=== PATIENT | male | born 1940 | race Caucasian/White ===

== ENCOUNTER 2024-02-14 05:59 | Day surgery (SDC) | payer OTHER, SELFPAY ==
[2024-01-23 13:02] VITALS: BMI 26.3
[2024-01-23 13:28] LABS: % Basophils 1.1 % (0-2); % Eosinophils 4.6 % (0-6); % Immature Granulocytes 0.6 % (0-0.5); % Lymphocytes 21.8 % (20.5-51.1); % Monocytes 10.4 % (1.7-9.3); % Neutrophils 61.5 % (42.2-75.2); Absolute Basophils 0.1 10^3/uL (0-0.2); Absolute Eosinophils 0.3 10^3/uL (0-0.7); Absolute Lymphocytes 1.4 10^3/uL (1.2-3.4); Absolute Monocytes 0.7 10^3/uL (0.1-0.6); Absolute Neutrophils 3.8 10^3/uL (1.4-6.5); Hematocrit 48.6 % (39.0-52.0); Hemoglobin 17.4 g/dL (13.0-18.0); Mean Corp Hgb Conc. 35.8 g/dL (33.0-37.0); Mean Corpuscular Hgb 32.6 pg (27.0-31.0); Mean Platelet Volume 10.3 fL (7.4-10.4); Nucleated Red Blood Cells % 0 % (-); Platelet Count 208 10^3/uL (130-400); Red Blood Cell Count 5.34 10^6/uL (4.70-6.10); Red Cell Dist. Width 13.3 % (11.5-14.5); White Blood Cell Count 6.3 10^3/uL (4.8-10.8)
[2024-01-23 13:39] LABS: INR 1.17
[2024-01-23 13:43] LABS: ALT (SGPT) 47 U/L (0-50); AST (SGOT) 51 U/L (17-59); Albumin 5.1 g/dl (3.5-5.0); Alkaline Phosphatase 86 U/L (38-126); Blood Urea Nitrogen 19 mg/dl (9-20); Carbon Dioxide 26 mmol/L (22-30); Chloride 103 mmol/L (98-107); Estimated Creatinine Clearance 53 ml/min; Glucose 98 mg/dl (70-99); Magnesium 2.2 mg/dl (1.6-2.3); Potassium 4.8 mmol/L (3.5-5.1); Sodium 139 mmol/L (135-145); Total Bilirubin 1.1 mg/dl (0.2-1.3); Total Protein 7.8 g/dl (6.3-8.2); eGFR > 60.00
[2024-02-14] VITALS (12 sets, daily range): BP systolic 110–152; BP diastolic 68–96; BMI 25.9
[2024-02-14 08:48] LABS: ACT-LR - POC 292 Seconds (116-155)
[2024-02-14 09:10] LABS: ACT-LR - POC 356 Seconds (116-155)
[2024-02-14 09:32] LABS: ACT-LR - POC 327 Seconds (116-155)
--- NOTE | 2024-02-14 09:53 | ITS.CL.ABL ---
Type Photography Supervisor - Ablation
Ablation
Procedure Report:
ELECTROPHYSIOLOGIC STUDY AND POSSIBLE ABLATION
DATE: February 14, 2024
Primary Care Provider: Dr. Juan Antonio Almaraz
Primary 4 H Youth Development Specialist: Dr. Saeid Braun
INDICATION:
Symptomatic Atrial Fibrillation.
Paroxysmal
HISTORY: See H and P.
Symptomatic AF, poorly controlled with attempted medical therapy.
He has been referred for electrophysiologic consultation From Dr. Saeid Braun regarding symptomatic atrial fibrillation.
He carries a history of heart failure with preserved ejection fraction, paroxysmal atrial fibrillation, paroxysmal atrial tachycardia/atypical flutter.�
HAS-BLED: 1
Age
CHADSVASc: 3
CHF (HFpEF)
Age
PRESENTING RHYTHM: AF
HISTORY: See H and P.
Symptomatic AF, poorly controlled with attempted medical therapy.
ANTICOAGULATION: apixaban
'TIME-OUT': called and confirmed.
SEDATION/ANESTHESIA: provided via the anesthesia department using general anesthesia.
PROCEDURE:
Ultrasound Guidance performed by ca was utilized for femoral venous Vascular Access b/l.
A decapolar CS catheter was placed within the CS for mapping and pacing.
The intracardiac ultrasound catheter was positioned in the RA for continuous intracardiac ultrasound imaging.
Cardioversion restored sinus rhythm.
Heparin bolus and infusion to target ACT at 300 -350 seconds was administered. Transseptal puncture was performed. This entailed advancing a sheath with dilator into the superior vena cava and withdrawing both (monitoring intracardiac ultrasound,
fluoroscopy and tip pressure) with the tip oriented toward the atrial septum. The fossa ovalis was engaged (indicated by sudden displacement of the sheath tip as well as tenting of the fossa seen on intracardiac ultrasound).
[employer] transseptal system was used. Left atrial catheter position was confirmed by echocardiographic imaging, pressure monitoring (LA mean pressure [ ] mm Hg) and fluoroscopy. The sheath was advanced over the dilator and positioned in the left
atrium.
The multipolar mapping catheter was initially positioned through the transseptal sheath for high density mapping.
Geometry and voltage mapping was performed using the [employer] multipolar grid catheter. [employer]avex was utilized for three-dimensional electroanatomical mapping.
A 3-D map was created using [employer]. A 3-D reconstructed CT image was compared to the 3-D [employer] map to assist in anatomic evaluation, mapping and ablation.
The Dr Lal [employer] Pulse Select PFA catheter and system was used for cardiac ablation. Catheter positioning was guided and confirmed using both I.C.E. and fluoroscopy.
PV isolation approach was used to electrically isolate each PV ostia.
Remapping with the [employer] multipolar grid catheter found that all PVPs were eliminated at each vein demonstrating entrance block. Also pacing from the multipolar mapping catheter around the the circumference of the ostia was performed at 10 ma and
2.0 msec output to assess for exit block. This demonstrated electrical isolation at each of the pulmonary vein ostia LSPV, LIPV, RSPV, RIPV.
Additional energy applications/additional ablation set was required to accomplish wide area circumferential ablation around each of the pulmonary vein sets. Furthermore, mapping of the posterior wall finds areas of significant fractionation and
therefore posterior wall isolation as an additional ablation lesion set was also performed.
High density electroanatomical mapping post ablation demonstrated isolation of all 4 pulmonary veins and a wide area circumferential fashion as well as electrical isolation of the posterior wall. Isolation of the pulmonary veins and posterior wall
includes both entrance and exit block.
I.C.E. :
Pre-Ablation Post-Ablation
LVEF: 55 % 55 %
WMA: none none
Pericardial effusion: none none
COMPLICATIONS:
None
SUMMARY:
- Mapping and ablation to isolate the PVs
- Additional AF ablation set after PVI.
- 3-D Electroanatomical Mapping
- Intracardiac Ultrasound
Post ablation, I called the patient's and left a message regarding today's findings and results.
RECOMMENDATIONS:
- Observe in monitored bed.
- Maintain oral anticoagulation.
- Reduce Toprol-XL from 50 mg to 25 mg daily
- Office visit with me in 3 months.
- Continue cardiovascular care with Dr. Saeid Braun
Copy to:
Dr. Juan Antonio Almaraz
Dr. Saeid Braun
--- NOTE | 2024-02-14 14:03 | W.PN.UPDATE ---
Update Note
Progress Note Update
83 yo WM s/p PVI (same day). He feels good, no cp, sob, kelsi diet, voiding, amb w/o dizziness, EKG SR, R fem site c/d/i no HT, soft. He will continue OAC Eliquis dose at 4pm at home. He will decrease metoprolol xl to 25mg bid. Activity restricions
reviewed. He will f/u Dr. Braun in 6-8 weeks. He is for d/c home after 230p if groin stable.
SUMMARY:
- Mapping and ablation to isolate the PVs
- Additional AF ablation set after PVI.
- 3-D Electroanatomical Mapping
- Intracardiac Ultrasound
Post ablation, I called the patient's and left a message regarding today's findings and results.
RECOMMENDATIONS:
- Observe in monitored bed.
- Maintain oral anticoagulation.
- Reduce Toprol-XL from 50 mg to 25 mg daily
- Office visit with me in 3 months.
- Continue cardiovascular care with Dr. Saeid Braun
Copy to:
Dr. Juan Antonio Almaraz
Dr. Saeid Braun
== END 2024-02-14 14:30 | disposition home or self-care (01) ==
LOC: CATH 05:59
PROVIDERS: ATTENDING PHYSICIAN Internal Medicine Cardiovascular Disease; FAMILY PHYSICIAN Family Medicine; OTHER PHYSICIAN Internal Medicine Cardiovascular Disease
DX: I48.0 Paroxysmal atrial fibrillation (principal); I50.32 Chronic diastolic (congestive) heart failure; I11.0 Hypertensive heart disease with heart failure; E78.5 Hyperlipidemia, unspecified; G47.33 Obstructive sleep apnea (adult) (pediatric); Z85.46 Personal history of malignant neoplasm of prostate; Z79.899 Other long term (current) drug therapy; Z79.01 Long term (current) use of anticoagulants; R06.02 Shortness of breath; Z90.49 Acquired absence of other specified parts of digestive tract; Z90.79 Acquired absence of other genital organ(s); Z96.653 Presence of artificial knee joint, bilateral
CPT/HCPCS: C1732; C1733; C1769; C1730; C1892; C1766; C1759; 36415; 75572; 76937; 80053; 83735; 85025; 85347; 85610; 86850; 86900; 86901; 93005; 93656; 93657; Q9967

== ENCOUNTER → 2024-05-05 13:47 | Outpatient (REF) | payer OTHER, SELFPAY | LOC: DHSLP 13:47 | PROVIDERS: ATTENDING PHYSICIAN Family Medicine; FAMILY PHYSICIAN Internal Medicine Critical Care Medicine | DX: G47.33 Obstructive sleep apnea (adult) (pediatric) (principal) | CPT/HCPCS: 95800 ==